=== PATIENT | male | born 1955 | race Caucasian/White ===

== ENCOUNTER 2017-04-11 14:57 | Emergency (ER) | payer BC, OTHER ==
[2017-04-11 15:05] VITALS: BP 154/84
[2017-04-11] MEDS ORDERED: HYDR-971 PO (16:25)
[2017-04-11] MEDS ORDERED: VALA1000 PO (16:25)
--- NOTE | 2017-04-11 16:27 | PHYS DOC ---
General Chief Complaint: SKIN PROBLEM Stated Complaint: SKIN PROBLEM Time Seen by MD: 16:24 Source: patient Exam Limitations: no limitations Problems: History of Present Illness Initial Comments Patient is a 62-year-old male who complains of left-sided for a rash since Wednesday. He saw his primary care provider Yanet Pandey on April 08 and was prescribed clindamycin. He was advised that if symptoms do not improve it could be shingles and he would need further treatment. The patient describes spread of the rash around the left side of his head and down his face to above his eye , denies blurred vision no lesions at the tip of the nose. He describes burning and itching followed by vesicles which scab over with pain. Timing/Duration: other Severity: severe Location: facial Prearrival Treatment: over the counter meds, prescription meds Modifying Factors: improves with other Associated Symptoms: other Allergies: Coded Allergies: No Known Drug Allergies (Unverified , 04/11/17) Past Medical History Medical History: diabetes Surgical History: appendectomy Social History Smoker: non-smoker Alcohol: none Drugs: none Constitutional: denies chills, denies fever Eyes: denies blurred vision, denies drainage, denies decreased acuity, denies foreign body sensation Ears: denies dizziness, denies pain, denies tinnitus Nose: denies clots, denies congestion Throat: denies pain, denies swelling, denies neck stiffness Respiratory: denies cough, denies shortness of breath Cardiovascular: denies chest pain, denies palpitations Skin: see HPI Physical Exam General Appearance: WD/WN, no apparent distress Eyes: bilateral eye normal inspection, bilateral eye PERRL, bilateral eye EOMI Nose: normal inspection Mouth/Throat: normal mouth inspection, pharynx normal Cardiovascular/Respiratory: normal breath sounds, no respiratory distress Skin: rash (vesicular rash with scabbed lesions at the left forehead extending laterally around the head consistent with shingles) Orders, Labs, Meds I discussed shingles at length with the patient discussed antiviral and analgesic therapy. Discussed signs and symptoms to monitor for as well as indications for urgent return to the department. Patient will follow-up with his eye doctor tomorrow and Yanet Pandey later this week. He expressed agreement and understanding with treatment plan. Departure Time of Disposition: 16:25 Disposition: HOME, SELF-CARE Diagnosis: shingles Condition: GOOD Patient Instructions: Shingles, [id number] Additional Instructions: Please review the patient education materials given by ED staff. Discontinue prior rash medications. Prescription: Valacyclovir, Garfield 5 mg quantity 20 Take medications with food. Take [id number] stool softeners and increase fluid intake to avoid opiate associated constipation. No driving or operating machinery while taking Garfield. Follow-up with your eye doctor tomorrow as discussed. Follow-up with Yanet Pandey in 3-5 days for recheck. Return to ED with new or changing symptoms. MELINA ARZATE DO Apr 11, 2017 16:27
== END 2017-04-12 16:45 | disposition home or self-care (01) ==
LOC: ER 14:57
DX: B02.9 Zoster without complications (principal); E11.9 Type 2 diabetes mellitus without complications
CPT/HCPCS: 99283

== ENCOUNTER → 2017-07-06 | Outpatient (CLI) | payer BC ==
[~2017-07-06] MED LIST: HYDR-971 PO; VALA1000 PO
--- NOTE | 2017-07-06 13:47 | RAD ---
Lumbar spine, 5 views, 07/06/2017: History: Low back pain The lumbar vertebral heights are well-maintained. There is moderate disc space narrowing and marginal spurring at L2-3. There is mild disc space narrowing at L1-2 with prominent left lateral spurring at that level. There are mild sclerotic changes involving scattered facet joints, particularly in the lower lumbar spine. There is no evidence of spondylolysis. The paraspinous soft tissues are unremarkable. IMPRESSION: 1. Moderate scattered degenerative changes as described above. 2. No acute bony abnormality is detected.
== END | disposition home or self-care (01) ==
LOC: PMG 10:14
PROVIDERS: ATTEND Physician Assistant
DX: M47.896 Other spondylosis, lumbar region (principal); M48.061 Spinal stenosis, lumbar region without neurogenic claudication; E11.9 Type 2 diabetes mellitus without complications
CPT/HCPCS: 72110

== ENCOUNTER → 2017-08-10 | Outpatient (CLI) | payer BC ==
[~2017-08-10] MED LIST changes: +0.9 % SODIUM CHLORIDE 10 ML VIAL ONE; +DEXAMETHASONE SOD PHOS 4 MG/ML VIAL ONE; +IOHEXOL 300 MG/ML 50 ML VIAL. ONE; +LIDOCAINE 1% PF 30 ML VIAL. ONE
== END ==
LOC: SURG 08:34
PROVIDERS: ATTEND Anesthesiology
DX: M54.16 Radiculopathy, lumbar region (principal); E11.9 Type 2 diabetes mellitus without complications
CPT/HCPCS: 64483; J1100; J2001; Q9967

== ENCOUNTER → 2019-09-28 | Outpatient (CLI) | payer BC, OTHER ==
[~2019-09-28] MED LIST changes: -0.9 % SODIUM CHLORIDE 10 ML VIAL ONE; -DEXAMETHASONE SOD PHOS 4 MG/ML VIAL ONE; +HYDR-3165 PO; -HYDR-971 PO; -IOHEXOL 300 MG/ML 50 ML VIAL. ONE; -LIDOCAINE 1% PF 30 ML VIAL. ONE; -VALA1000 PO; +VALA10008 PO
--- NOTE | 2019-09-28 08:41 | RAD ---
DUPLEX LOWER EXTREMITY BILAT Indication: Reason: PAIN AND TINGLING BILAT LEGS AND FEET / Spl. Instructions: / History: Comparison: None. Procedure: Real-time grayscale, color flow Doppler, and Doppler spectral waveform analysis of the arterial system of the lower extremity is performed. Findings: Biphasic or triphasic waveforms are present in the common femoral artery, superficial femoral artery, popliteal artery, anterior tibial artery, posterior tibial artery and dorsalis pedis artery. IMPRESSION: 1. No hemodynamically significant arterial stenosis. Electronically signed by: Steve Tellez DO (09/28/2019 8:38 AM) [id number]
== END ==
LOC: US 07:40
PROVIDERS: ATTEND Physician Assistant
DX: M79.604 Pain in right leg (principal)
CPT/HCPCS: 93925

== ENCOUNTER 2019-12-16 14:50 | Emergency (ER) | payer OTHER ==
[~2019-12-16] VITALS: Ht 180.3 cm; Wt 91.0 kg
[2019-12-16 15:41] VITALS: BP 169/100
[2019-12-16] MEDS ORDERED: PRED20TA PO (16:29)
[2019-12-16] MEDS ORDERED: predniSONE 20 MG TABLET PO ONE (16:30)
--- NOTE | 2019-12-16 16:30 | PHYS DOC ---
Past History Past Medical History: Diabetes Past Surgical History: Appendectomy Alcohol Use: None Drug Use: None Adult General Chief Complaint Chief Complaint: BACK PAIN OR INJURY [facility] HPI Patient is a 64-year-old male who presents with lower back pain. Onset was yesterday after patient was moving boxes from the floor to a standing position. Patient reports bending over to put a heavy box down when he felt pain to his left lower back area. Laying down and resting makes better, ambulating and extending make worse. Patient reports left lower back pain that is exacerbated by conditions just described prompting 8/10 severity of pain that radiates down the back of his left buttock to his left posterior knee. Pain is sharp and sometimes burning in nature. Patient has history of sciatic pain of contralateral side, reports pain today is similar to that episode suffered several years ago. Patient has not taken anything for the pain prior to arrival. Of note, patient does not have fever, no saddle anesthesia, no new onset bladder and/or bowel incontinence, no history of IV drug use, no long-term steroid use, no history of spinal abscess or other concerning lower back/spinal abnormalities Review of Systems Review of Systems Fourteen body systems of review of systems have been reviewed. See HPI for pertinent positives and negative responses, other scott all other systems are negative, non-pertinent or non-contributory Current Medications Current Medications Current Medications Medications (Trade) Dose Ordered Sig/Lucian Start Time Stop Time Status Last Admin Dose Admin Prednisone (Prednisone) 40 mg 1X ONCE 12/16/19 16:30 12/16/19 16:31 Allergies Allergies Allergies Coded Allergies Type Severity Reaction Last Updated Verified No Known Drug Allergies 04/11/17 No Physical Exam Physical Exam Constitutional: Well developed, well nourished, no acute distress, non-toxic appearance. HENT: Normocephalic, atraumatic, bilateral external ears normal, oropharynx moist, no oral exudates, nose normal. Eyes: PERRLA, EOMI, conjunctiva normal, no discharge. Neck: Normal range of motion, no tenderness, supple, no stridor. Cardiovascular: Heart rate regular, sinus rhythm, no murmurs rubs or gallops Lungs & Thorax: Bilateral breath sounds clear to auscultation Abdomen: Bowel sounds normal, soft, no tenderness, no masses, no pulsatile masses. Nonsurgical abdomen, no peritoneal signs Skin: Warm, dry, no erythema, no rash. Back: No CVA tenderness. Pain to palpation of left paralumbar muscles, left gluteal muscle is tender to palpation. Palpation of cervical, thoracic, and lumbar spinous processes unremarkable without step-off or other palpable abnormalities. Positive straight leg raise test of left lower extremity Extremities: No tenderness, no cyanosis, no clubbing, ROM intact, no edema. Neurologic: Alert and oriented X 3, reflexes 2/4 bilateral lower extremities, no saddle anesthesia, normal motor & sensory function, no focal deficits noted. Psychologic: Affect normal, judgement normal, anxious mood Current Patient Data Vital Signs Vital Signs Date Time Temp Pulse Resp B/P (MAP) Pulse Ox O2 Delivery O2 Flow Rate FiO2 12/16/19 15:41 97.9 107 20 169/100 (123) 97 EKG EKG [] Radiology/Procedures Radiology/Procedures [] Course & Med Decision Making Course & Med Decision Making Ambulatory patient seen on ER arrival ABCs grossly non-concerning Comprehensive history and physical exam obtained. Discussed most likely diagnosis of sciatica due to recent increased physical activity moving boxes I discussed other potential diagnoses but at this time feel that there is no indication for further diagnostic work-up in ER setting. I did disclose that this might be an acute presentation of more concerning pathology, patient understood this well I discussed role of continued supportive care involving stretches at home, NSAIDs and/or Tylenol for pain, application of heat, and short-term steroid use for sciatic pain. I discussed there might be a role for outpatient physical therapy at discretion of his PCP Ultimately, well-appearing patient without any concerning red flag signs or symptoms apparent on physical exam fit for discharge home with close PCP follow- up in upcoming 2 to 10 days time for reevaluation Strict return precautions were discussed with good understanding by patient, all questions and concerns addressed prior to ER departure in stable condition Dragon Disclaimer Dragon Disclaimer This electronic medical record was generated, in whole or in part, using a voice recognition dictation system. Departure Departure: Impression: Primary Impression: Lower back pain Disposition: 01 HOME/RESIDENCE PRIOR TO ADM Condition: STABLE Referrals: JOE GUEVARA (PCP) Patient Instructions: Back Exercises, Sciatica Scripts Prednisone (PREDNISONE) 20 Mg Tablet 40 MG PO DAILY for SCIATICA for 5 Days, #10 TAB Prov: MELVIN BAUER DO 12/16/19 Justification of Admission: Justification of Admission: Justification of Admission Dx: N/A MELVIN BAUER DO Dec 16, 2019 16:30
== END 2019-12-16 16:42 | disposition home or self-care (01) ==
LOC: ER 14:50
DX: M54.5 Low back pain (principal); E11.9 Type 2 diabetes mellitus without complications; Z90.89 Acquired absence of other organs
CPT/HCPCS: 99283